=== PATIENT | male | born 1975 | race Hispanic/Latino ===

== ENCOUNTER → 2022-12-11 | Outpatient (CLI) | payer BC | LOC: SLEEP 02:41 | PROVIDERS: ATTEND Otolaryngology | DX: G47.33 Obstructive sleep apnea (adult) (pediatric) (principal); F51.8 Other sleep disorders not due to a substance or known physiological condition; R40.0 Somnolence; G40.909 Epilepsy, unspecified, not intractable, without status epilepticus; R06.83 Snoring; E66.3 Overweight; Z68.33 Body mass index [BMI] 33.0-33.9, adult | CPT/HCPCS: 95810 ==